=== PATIENT | female | born 1955 | race African-American/Black ===

== ENCOUNTER → 2019-12-01 | Outpatient (CLI) | payer OTHER | LOC: HYPER 08:36 | DX: E11.622 Type 2 diabetes mellitus with other skin ulcer (principal); L97.822 Non-pressure chronic ulcer of other part of left lower leg with fat layer exposed; I87.2 Venous insufficiency (chronic) (peripheral); I89.0 Lymphedema, not elsewhere classified; E11.51 Type 2 diabetes mellitus with diabetic peripheral angiopathy without gangrene; R26.2 Difficulty in walking, not elsewhere classified; G89.29 Other chronic pain; D86.9 Sarcoidosis, unspecified; J45.909 Unspecified asthma, uncomplicated; I11.0 Hypertensive heart disease with heart failure; I50.20 Unspecified systolic (congestive) heart failure; E78.5 Hyperlipidemia, unspecified; G47.33 Obstructive sleep apnea (adult) (pediatric); E11.36 Type 2 diabetes mellitus with diabetic cataract; M19.90 Unspecified osteoarthritis, unspecified site; E66.01 Morbid (severe) obesity due to excess calories; F33.8 Other recurrent depressive disorders; Z68.44 Body mass index [BMI] 60.0-69.9, adult; Z79.4 Long term (current) use of insulin ==

== ENCOUNTER → 2019-12-29 | Outpatient (CLI) | payer OTHER | LOC: HYPER 13:19 | DX: E11.622 Type 2 diabetes mellitus with other skin ulcer (principal); L97.811 Non-pressure chronic ulcer of other part of right lower leg limited to breakdown of skin; L97.822 Non-pressure chronic ulcer of other part of left lower leg with fat layer exposed; I87.2 Venous insufficiency (chronic) (peripheral); I89.0 Lymphedema, not elsewhere classified; E11.51 Type 2 diabetes mellitus with diabetic peripheral angiopathy without gangrene; M62.81 Muscle weakness (generalized); R26.2 Difficulty in walking, not elsewhere classified; D86.9 Sarcoidosis, unspecified; I11.0 Hypertensive heart disease with heart failure; I50.20 Unspecified systolic (congestive) heart failure; G89.29 Other chronic pain; E78.5 Hyperlipidemia, unspecified; G47.33 Obstructive sleep apnea (adult) (pediatric); J45.909 Unspecified asthma, uncomplicated; E11.36 Type 2 diabetes mellitus with diabetic cataract; M19.90 Unspecified osteoarthritis, unspecified site; E66.01 Morbid (severe) obesity due to excess calories; F33.8 Other recurrent depressive disorders; Z68.44 Body mass index [BMI] 60.0-69.9, adult; Z79.4 Long term (current) use of insulin ==

== ENCOUNTER → 2020-01-11 | Outpatient (CLI) | payer OTHER | LOC: HYPER 12:44 | DX: E11.622 Type 2 diabetes mellitus with other skin ulcer (principal); L97.822 Non-pressure chronic ulcer of other part of left lower leg with fat layer exposed; I87.2 Venous insufficiency (chronic) (peripheral); I89.0 Lymphedema, not elsewhere classified; E11.51 Type 2 diabetes mellitus with diabetic peripheral angiopathy without gangrene; M62.81 Muscle weakness (generalized); R26.2 Difficulty in walking, not elsewhere classified; G89.29 Other chronic pain; D86.9 Sarcoidosis, unspecified; I11.0 Hypertensive heart disease with heart failure; I50.20 Unspecified systolic (congestive) heart failure; E78.5 Hyperlipidemia, unspecified; J45.909 Unspecified asthma, uncomplicated; E11.36 Type 2 diabetes mellitus with diabetic cataract; M19.90 Unspecified osteoarthritis, unspecified site; E66.01 Morbid (severe) obesity due to excess calories; G47.33 Obstructive sleep apnea (adult) (pediatric); F33.8 Other recurrent depressive disorders; Z68.44 Body mass index [BMI] 60.0-69.9, adult; Z79.4 Long term (current) use of insulin ==

== ENCOUNTER 2021-03-26 16:04 | Inpatient (IN) | payer OTHER ==
[~2021-03-26] VITALS: Ht 157.5 cm; Wt 161.1 kg
--- NOTE | ~2021-03-26 | HC ---
[facility] [place] [address] CONSULTATION Name: AARON JAVIER Room #: 459-P ADM IN M.R.#: [id number] Admission: 03/26/21 Attend Phys: James Gusman MD Discharge: Date of : 53 Report #: [id number] THIS REPORT FOR: cc: Pepito Collins MD, Srinath MD Althoff,Dionicio Rojas MD ~ DOC #: [id number] Dionicio Rainey MD DATE OF SERVICE: 03/27/2021 CHIEF COMPLAINT: Cellulitis to the right lower extremity. HISTORY OF PRESENT ILLNESS: This is a 65-year-old female patient who was admitted to the emergency room with increasing pain, swelling, redness and drainage from her right lower extremity. She lives in a shelter care facility. She has had increasing drainage from the posterior calf area and has been admitted for IV antibiotics. I have been asked to see her with regard to wound care. PAST MEDICAL HISTORY: Significant for history of type 2 diabetes mellitus, hypertension, hyperlipidemia and prior history of cellulitis. ALLERGIES: CONTRAST DYE AND ATORVASTATIN. MEDICATIONS: Include aspirin, baclofen, Lotensin, Coreg, vitamin D3, famotidine, Flonase, furosemide, glucagon, guaifenesin, hydrocodone, ibuprofen, insulin. SOCIAL HISTORY: Negative for alcohol or tobacco use. The patient lives in a shelter facility. FAMILY HISTORY: Noncontributory. REVIEW OF SYSTEMS: CONSTITUTIONAL: The patient denies fever, chills or weight loss. NEUROLOGICAL: The patient denies focal weakness, numbness, tingling. EYES: The patient denies visual changes, but has drainage. ENT: The patient denies earache, nasal drainage, sore throat. CARDIOVASCULAR: The patient denies chest pain, palpitation, diaphoresis. PULMONARY: The patient denies cough, shortness of breath. GASTROINTESTINAL: Denies nausea, vomiting, diarrhea, abdominal pain. MUSCULOSKELETAL: The patient complains of pain, swelling, redness to the right lower extremity. Others systems on a 14-point review of systems are negative. PHYSICAL EXAMINATION: [address] [address] CONSULTATION Name: ANGEL GILAARON Room #: 459-P [facility]#: [id number] Admission: 03/26/21 Attend Phys: James Gusman MD Discharge: Date of : 53 Report #: [id number] VITAL SIGNS: Include temperature 36.8, pulse 90, respiratory rate 18, blood pressure 134/67. GENERAL: This is a chronically ill-appearing female. The patient appears to be in no acute distress. HEENT: Head normocephalic. Nose and throat are clear. NECK: Supple. LUNGS: Clear. HEART: Regular. ABDOMEN: Soft. Bowel sounds present. EXTREMITIES: Lower extremities demonstrate significant erythema, tenderness and warmth to the right lower extremity consistent with cellulitis. She has venous type ulceration to the posterior calf on that side which is also tender to palpation. NEUROLOGIC: Alert, oriented, and appropriate. LABORATORY DATA: Include white blood cell count 7.5 with a hemoglobin of 12.0. Sodium 149, potassium 4.5, chloride 111, CO2 of 33, BUN 19, creatinine 0.9, glucose 92, alkaline phosphatase is 38. Albumin is 3.2. CLINICAL IMPRESSION: 1. Venous ulceration to the right lower extremity. 2. Cellulitis and wound infection, right lower extremity. 3. Bilateral lower extremity lymphedema. 4. Type 2 diabetes mellitus. 5. Morbid obesity. 6. Mild protein calorie malnutrition. RECOMMENDATIONS: At this point in time, we will recommend Silvadene, morphine cream, Xeroform, Kerlix, tape, gentle compression and elevation to the right lower extremity. Lymphedema compression would be beneficial on the left lower extremity. She will need intravenous antibiotic therapy, which has been started. Infectious disease has been consulted. Continue current medications. I appreciate being asked to see her in consultation. Dionicio Rainey MD JRA/JOCY By: 0 49 Dionicio Rainey MD /carolann
[2021-03-26 16:06] VITALS: BP 189/81
[2021-03-26 17:27] LABS: ABSOLUTE NEUTROPHILS 4.3 thou/uL (1.4-8.2); BASOPHILS 1.1 % (0.0-2.0); EOSINOPHILS 4.1 % (0.0-3.0); HEMATOCRIT 37.5 % (37.0-47.0); LYMPHOCYTES 22.7 % (24.0-44.0); MCH 28.4 pg (26.0-34.0); MCHC 31.9 g/dL (28.0-37.0); MCV 89.1 fL (80.0-100.0); MONOCYTES 13.9 % (1.0-8.0); PLATELET COUNT 179 thou/uL (150-400); POLYS 58.2 % (36.0-66.0); RBC 4.21 mil/uL (4.20-5.00); RDW 14.8 % (10.5-14.5); WBC 7.5 thou/uL (4.0-11.0)
[2021-03-26 17:44] LABS: CALCIUM 8.9 mg/dL (8.5-10.1); CREATININE 0.9 mg/dL (0.6-1.0); POTASSIUM 4.5 mmol/L (3.5-5.1)
[2021-03-26 17:52] LABS: ALBUMIN 3.2 g/dL (3.4-5.0); TOTAL BILIRUBIN 0.3 mg/dL (0.2-1.0); TOTAL PROTEIN 7.4 g/dL (6.4-8.2)
[2021-03-26 20:04] VITALS: BP 146/69
[2021-03-26 20:49] VITALS: BP 125/80
[2021-03-27] MEDS ORDERED: CHILDREN'S ASPI81 M1 PO (02:01)
[2021-03-27] MEDS ORDERED: BACLOFEN 10MG T10 MG PO (02:04)
[2021-03-27] MEDS ORDERED: LOTENSIN20 MG PO (02:05)
[2021-03-27] MEDS ORDERED: GUAIFENESIN400 MG PO (02:10)
[2021-03-27] MEDS ORDERED: CARVEDILOL12.5 MG PO (02:19)
[2021-03-27] MEDS ORDERED: VITAMIN D3250 MC1 PO (02:26)
[2021-03-27] MEDS ORDERED: FAMOTIDINE20 MG PO (02:27)
[2021-03-27] MEDS ORDERED: FLONASE 0.05%50 MCG NASAL (02:28)
[2021-03-27] MEDS ORDERED: GLUCAGON EMERGEN1 M1 IM (02:32)
[2021-03-27] MEDS ORDERED: HUMULIN R100 UNIT/1 SUBQ (02:34)
[2021-03-27] MEDS ORDERED: HYDROCODON-ACE1 EAC7 PO (02:39)
[2021-03-27] MEDS ORDERED: IBU600 MG PO (02:42)
[2021-03-27] MEDS ORDERED: LEVEMIR100 UNIT/1 SUBQ (02:45)
[2021-03-27] MEDS ORDERED: MAGNESIUM400 M1 PO (02:47)
[2021-03-27] MEDS ORDERED: KLOR-CON M2020 MEQ PO (02:48)
[2021-03-27] MEDS ORDERED: CRESTOR20 MG PO (02:49)
[2021-03-27] MEDS ORDERED: SENOKOT8.6 MG PO (02:50)
[2021-03-27] MEDS ORDERED: FUROSEMIDE 20 M20 MG PO (02:51)
[2021-03-27] MEDS ORDERED: ANORO ELLIPTA1 EACH INH (02:53)
--- NOTE | 2021-03-27 08:05 | NUR ---
Pt admitted from ED appropx 2100 with RLE cellulitis,A/OX4. C/o severe pain to BLE, order for Fentanyl obtained and effective. Pt reports she can ambulate using a walker on assessment;asking for a jeffery catheter because she's big informed that's not a medical necessity for it' Purewick replaced twice at [facility], patent with yellow urine noted. Wound care/pictures taken. Fall precauitons in place.
[2021-03-27 08:11] VITALS: BP 134/67
--- NOTE | 2021-03-27 09:29 | NUR ---
Nutrition: pt admitted with RLE cellulitis with increased weeping. Wound consult received. BMI 65, extreme class 3 obesity with 15# recent gain d/t fluid. PMH: chronic lymphedema, CHF, morbid obesity. Pt reports "so so" appetite but noted she had consumed nearly 100% of breakfast at time of visit. Reviewed importance of low Na+ diet. Pt from SNF and does not report following it there. Also reviewed importance of high protein choices. Takes Prostat BID at facility. Will offer ensure max (30 gm protein, low kcal) daily here. Pt agrees. Low nutrition risk at this time.
--- NOTE | 2021-03-27 13:56 | NUR ---
PT ADMITTED RELATED TO CELLULITIS RLE AND INCREASED WEEPING. CM REVIEWED CHART AND SPOKE WITH CARE TEAM. CM MET WITH PT AT BEDSIDE THIS DAY. PT APPEARED TO BE A&O X4. CM ROLE INTRODUCED PT INDICATED SHE HAD BEEN AT [facility]. PT INDICATED SHE HAS BEEN THERE FOR ABOUT A YEAR. PT INDICATED SHE USES A FWW AND A WC TO ASSIST WITH MOBILITY. PT INDICATED SHE HAD BEEN ABLE TO TRANSFER INDEPENDENTLY. PT INDICATED SHE PLANS TO RETURN TO [facility] ONCE MEDICALLY STABLE. PT IS ON IV VANC AND ZOSYN AND WC IS CONSULTED. CM FAXED CLINICAL INFO TO [facility]. CM FOLLOWING REGARDING DC PLANNING.
--- NOTE | 2021-03-27 15:40 | NUR ---
Assumed pt care at 7am.Pt in bed most of the time today but able to repositioned self as needed.Assessment completed.vss.Meds given as ordered and well tolerated.Dr Devries here,order noted.Dry dressing applied to rt lower leg.Pt c/o lower extremity pain rated 7/10.[place] given with relief.Waiting for silverdene cream from pharmacy before starting new drsg change. Will continue to monitor.
[2021-03-27 17:19] VITALS: BP 117/93
[2021-03-28 02:01] LABS: HEMATOCRIT 34.9 % (37.0-47.0); HEMOGLOBIN 10.9 gm/dL (12.0-15.0); MCH 27.9 pg (26.0-34.0); MCHC 31.2 g/dL (28.0-37.0); MCV 89.4 fL (80.0-100.0); RBC 3.91 mil/uL (4.20-5.00); RDW 14.7 % (10.5-14.5); WBC 7.6 thou/uL (4.0-11.0)
[2021-03-28 02:04] LABS: CALCIUM 8.5 mg/dL (8.5-10.1); CREATININE 0.9 mg/dL (0.6-1.0)
--- NOTE | 2021-03-28 04:45 | NUR ---
Pt. rested quiety at intervals during the night when checked on during frequent rounds. She can get fussy during cares and be demanding at times. Po meds given for c/o lower leg pain (see emar) with some relief. Bed alarm is on.
[2021-03-28 08:00] VITALS: BP 145/74
--- NOTE | 2021-03-28 12:30 | HC ---
[facility] [place] [address] CONSULTATION Name: AARON JAVIER Room #: 459-P ADM IN M.R.#: [id number] Admission: 03/26/21 Attend Phys: James Gusman MD Discharge: Date of : 53 Report #: [id number] THIS REPORT FOR: cc: Pepito Collins MD, Srinath MD Barry,Maurilio Vargas MD ~ DOC #: [id number] Maurilio Devries MD DATE OF SERVICE: 03/27/2021 INFECTIOUS DISEASE CONSULTATION DATE OF CONSULTATION: 03/27/2021 ATTENDING PHYSICIAN: Dr. Gusman. REASON FOR EVALUATION: Right lower extremity inflammatory eruption, likely multifactorial including skin and soft tissue infection with cellulitis associated wound. HISTORY OF PRESENT ILLNESS: Chart reviewed, patient examined. This is a 65-year-old woman with diabetes mellitus, has morbid obesity, bilateral lower extremity venous stasis insufficiency, component of lymphedema as well. She has had previous history of lower extremity wound. She noted increasing pain over the last 4-5 days in particular associated with the right lower extremity, it is difficult to ascertain from her standpoint whether there is increased swelling. There has been some ongoing primarily serous drainage, did admit to chills, although was not aware of any fevers. She notes she has had diminished appetite. Does have ongoing issues with dyspnea, which she attributes to scarring related to sarcoidosis and asthma, evaluated in the emergency room, was found to have unremarkable venous Doppler right lower extremity, was placed empirically on combination therapy with vancomycin, piperacillin/tazobactam. She notes she feels overall about the same since admission. She is generally lucid. ALLERGIES: LISTED TO CONTRAST DYE, ATORVASTATIN. CURRENT MEDICATIONS: Include insulin, hydrocodone, ipratropium, albuterol inhaler, Zosyn, ondansetron, acetaminophen, vancomycin. PAST MEDICAL HISTORY: As described above, diabetes mellitus, history of sarcoidosis, she states is in remission, asthma, essential hypertension, morbid obesity, chronic venous stasis insufficiency, lower extremity lymphedema, depression, has a cardiomyopathy with history of congestive heart failure. SOCIAL HISTORY: Former smoker, past ethanol, no illicit drug use. [address] [address] CONSULTATION Name: ANGEL GILAARON Room #: 459-P [facility] IN [facility].#: [id number] Admission: 03/26/21 Attend Phys: James Gusman MD Discharge: Date of : 53 Report #: [id number] FAMILY HISTORY: Noncontributory. REVIEW OF SYSTEMS: Otherwise, unremarkable. A 10-point review of systems exception of the above. PHYSICAL EXAMINATION: GENERAL: She is alert, cooperative, in moderate distress, morbidly obese. VITAL SIGNS: Temperature 98.2, pulse 90, respirations 18, blood pressure 134/67. SKIN: Warm, dry, no rashes. HEENT: Normocephalic. Extraocular muscles intact. NECK: Supple. LUNGS: Diminished breath sounds. There are no wheezes. Few crackles at the bases. HEART: Distant, regular with some ectopy, I do not appreciate a murmur. ABDOMEN: Large pannus, nontender, somewhat firm. EXTREMITIES: Bilateral lower extremities have significant edema, evaluate the right lower extremity has chronic dermopathy consistent with the lymphedema is exquisite tenderness specifically posteriorly, some superficial ulceration. GENITOURINARY AND RECTAL: Deferred. LABORATORY DATA: Electrolytes: Sodium 149, potassium 4.5, chloride 111, bicarbonate is 33, anion gap of 5, BUN and creatinine 19 and 0.9. LFTs unremarkable. Albumin of 3.2, total protein 7.4. Estimated GFR of 67. CBC: White count of 7.5, H and H 12.0 and 37.5, platelets of 179. ASSESSMENT AND PLAN: Bilateral lower extremity, chronic venous stasis insufficiency with dermatitis, lymphedema, right lower extremity with painful inflammatory eruption, likely a manifestation of the skin and soft tissue infection with wound infection, cellulitis. We will continue empiric antimicrobial therapy at this point. A drainage culture has been collected. We will await those results. Continue wound care. Initiate more compression as tolerated and elevation. She remains quite tenuous. Certainly at risk for additional complications. We will add incentive spirometry. Wound care as prescribed. MD ROSALIE Donald/[place] [address] CONSULTATION Name: AARON JAVIER Room #: 459-P [facility] IN M.R.#: [id number] Admission: 03/26/21 Attend Phys: James Gusman MD Discharge: Date of : 53 Report #: [id number] <ELECTRONICALLY SIGNED> By: Maurilio Devries MD 03/28/21 1230 [id number] Maurilio Devries MD /nt
--- NOTE | 2021-03-28 15:17 | NUR ---
PT CONTINUES ON IV VANC AND ZOSYN. WC FOLLOWING. CM FOLLOWING REGARDING DC PLANNING.
--- NOTE | 2021-03-28 15:22 | NUR ---
Assumed pt care at 7am.Pt in bed sound asleep at the beginning of shift. Assessment completed.vss. Meds given as ordered with breakfast.Pt has good appetite.C/o bilateral lower extremity pain rated 7/10.[place] given as ordered with relief.New drsg applied to rt calf wound.Pt requested for lymphedema nurse, Dr Gusman notified. No further c/o at present.Will continue to monitor.
[2021-03-28 16:00] VITALS: BP 145/63
[2021-03-28 19:58] VITALS: BP 157/68
[2021-03-29 05:17] LABS: HEMATOCRIT 36.4 % (37.0-47.0); HEMOGLOBIN 11.4 gm/dL (12.0-15.0); MCH 28.2 pg (26.0-34.0); MCHC 31.4 g/dL (28.0-37.0); MCV 89.8 fL (80.0-100.0); RBC 4.06 mil/uL (4.20-5.00); RDW 14.6 % (10.5-14.5); WBC 7.6 thou/uL (4.0-11.0)
[2021-03-29 05:23] LABS: CALCIUM 8.6 mg/dL (8.5-10.1); CREATININE 0.7 mg/dL (0.6-1.0)
--- NOTE | 2021-03-29 06:06 | NUR ---
Pt. rested quietly at intervals during the night when checked on during frequent rounds. She has been given po pain meds for c/o lower leg pain (see emar) with some relief noted. She has been using the bedpan. Pt. can get irritable at times. Bed alarm is on.
[2021-03-29 07:50] VITALS: BP 167/60
[2021-03-29 15:00] VITALS: BP 166/70
--- NOTE | 2021-03-29 15:53 | NUR ---
BPCI letter and preferred provider network provided to patient, lives at [facility] as long-term care resident.
[2021-03-29 20:17] VITALS: BP 191/80
--- NOTE | 2021-03-29 20:53 | NUR ---
Assumed pt care this am, diet and medicatiosn are tolerated well. able to use the commode and stayed on the recliner for most of the day. Lymphedema nurse and wound care nurse came to change the dressing, do wound care and wrap the legs as ordered by MD. Pain is managed with medication, partial relief is noted. Pt has a bm and used the bedside commode, ext fc being used when on the bed. Endorsed to the night nurse.
--- NOTE | 2021-03-30 05:44 | NUR ---
Pt. rested quietly at intervals during the night when checked on during frequent rounds. She has been given po pain meds for c/o pain to bilateral lower legs with some relief noted (see emar). Bed alarm is on.
[2021-03-30 09:09] VITALS: BP 161/76
--- NOTE | 2021-03-30 15:03 | NUR ---
CARE TEAM INDICATED THAT PT MAY BE MEDICALLY STABLE TO DISHCARGE BACK TO [facility] TOMORROW. CM CALLED AND SPOKE WITH ADMISSIONS AT [facility] AND NOTIFIED THEM. THEY INDICATED BEST WEEKEND CONTACT TO FAILITATE DISCHARGE IS [facility]. HE CAN BE REACHED BY CALLING MAIN FACILITY LINE AT . FAX ORDERS TO . CHART COPY ORDERED. PT IS AWARE.
--- NOTE | 2021-03-30 16:42 | NUR ---
ASSUMED CARE OF PATIENT AT SHIFT CHANGE. ASSESSMENT CHARTED. MEDS ADMINISTERED PER EMAR. VSS. PATIENT IS A&OX4 AND CALLS NEEDED. PATIENT TRANSFERRED TO BS AND CHAIR X1 WITH WALKER AND GB. NO ISSUES EXCEPT SOA RELIEVED AFTER A FEW MOMENTS OF REST. ABX INFUSING ON L FA; REINFORCED W PROTECTIVE WRAP. VOICES PAIN; PRN NORCO ADMINISTERED AND PROVIDED SOME RELIEF. WOUND CARE COMPLETE THIS AFTERNOON WITH LYMPHAEDEMA TREATMENT. FSBS STABLE THIS SHIFT; PATIENT VOICED ANXIETY OVER GETTING LG AMOUNT OF INSULIN AND REQUESTED SMALLER AMOUNTS THIS SHIFT. PROVIDER AWARE. PATIENT MEDICALLY STABLE FOR DISCHARGE TOMORROW AND WILL BE GOING BACK TO [facility]. PATIENT DENIED FURTHER NEEDS. FALL PRECAUTIONS IN PLACE. WILL CONTINUE TO MONITOR AND FOLLOW PLAN OF CARE
[2021-03-30 20:09] VITALS: BP 163/71
--- NOTE | 2021-03-31 04:23 | NUR ---
PAIENT TESTED COVID POSITIVE, PATIENT WAS VACCINED X2 IN OCTOBER AND NOVEMBER.PATIENT HAD NO S/S OF COVID THIS SHIFT. PATIENT HAD 36.1 THRESHHOLD. PATIENT AMBULATES WITH STEADY GAIT TO THE BEDSIDE COMMODE. BLE WRAPS ARE C/D/I. PAIN CONTROLLED THIS SHIFT.PATIENT IN RECLINER ASLEEP BREATHING REGULAR AND UNLABOURED.
[2021-03-31 05:35] LABS: HEMATOCRIT 35.4 % (37.0-47.0); HEMOGLOBIN 11.2 gm/dL (12.0-15.0); MCH 28.4 pg (26.0-34.0); MCHC 31.7 g/dL (28.0-37.0); MCV 89.8 fL (80.0-100.0); RBC 3.95 mil/uL (4.20-5.00); RDW 14.5 % (10.5-14.5); WBC 7.1 thou/uL (4.0-11.0)
[2021-03-31 05:49] LABS: CALCIUM 8.8 mg/dL (8.5-10.1); CREATININE 0.7 mg/dL (0.6-1.0)
[2021-03-31 07:42] VITALS: BP 153/69
[2021-03-31] MEDS ORDERED: AMOX TR-K CLV1 EAC4 PO (10:40)
[2021-03-31] MEDS ORDERED: CIPROFLOXACIN250 M2 PO (10:40)
[2021-03-31] MEDS ORDERED: ENOXAPARIN40 MG/0.1 SUBQ (10:41)
--- NOTE | 2021-03-31 14:56 | NUR ---
Assumed pt care this am, vs stable. Prefers to be on the recliner. Diet and medications are tolerated well. Able to ambulate to the commode, SOA noted with minimal exertion. Blood sugars monitores and medications given as per emar. Wound care MD came in the to see wound, noted both legs are in lymphedema wraps and to be changed on the 04/02 - 04/03, refused for wound dressing to be done and changed by this nurse. Pt was reported to be covid positive by the night nurse, ID informed, no isolation needed. Pt has a hx of covid in October and vaccinations were completed early this year as mentioned by the pt and facility nurse where pt had come from. Was advised by the facility that they were informed by the night nurse of the covid + results and they would get back to us regarding the DON decision for taking the pt back to the facility. Medications have been changed from IV to PO and is tolerated well.
[2021-03-31 16:00] VITALS: BP 182/75
[2021-03-31 19:45] VITALS: BP 180/65
--- NOTE | 2021-04-01 05:49 | NUR ---
Assumed pt care at 1900. A/OX4,VSS. C/o pain to BLE/Knees medicated per EMAR with relief reported. Up with AX1 RW/GB to BSC. Dsgs to BLE C/D/I,pt indicated she was told by the dsgs will be done 3/wk and doesn't want them touched. Resting on the recliner feet elevated. C/o indigestion, order for Mylanta obtained. Fall precauitons in place,will continue to monitor pt.
[2021-04-01 08:06] VITALS: BP 153/59
[2021-04-01 09:32] VITALS: BP 153/59
[2021-04-01] MEDS ORDERED: LEVOFLOXACIN750 MG PO (10:52)
--- NOTE | 2021-04-01 16:28 | NUR ---
Assumed pt care this am, VS stable. Stayed on the recliner for most of the day. Is able to ambulate with a walker to the commode. Lympedema wraps on BLE c/d/i, dressing not done since pt refused and wraps are to be changed on 04/02, only wants the wound casre team or the lympedema ot nurse to do the dressing. Refused both insulin scheduled and as per sliding scale for lunch stating she bottoms out in the pm. Was able to have a bm in the commode. Pt is morbidly obese and soa is noted upon exertion. Pain is managed with medications, partial relief is noted since as per pt pain is chronic. POC followed with no signs or verbalizations of distress noted. Was able to speak to Sabiha from [facility], they are able to take the pt at 4 to 5 pm when the bed will be available. Transport set up with [facility] spoke to Anabelle [phone], transport set up for 6 - 7 pm. Chart copy made, report offered to Sabiha from [facility] and stated this is not needed and they will call if there are any questions. IV removed, awaiting moss picker.
== END 2021-04-01 17:00 | DRG 602 ==
LOC: ER 16:04 → EROBS 19:50 → 4W 19:50
PROVIDERS: Emergency Medicine; Internal Medicine; ADMIT Hospitalist; ATTEND Hospitalist
DX: L03.115 Cellulitis of right lower limb (principal); U07.1 COVID-19; Z68.44 Body mass index [BMI] 60.0-69.9, adult; I42.9 Cardiomyopathy, unspecified; E44.1 Mild protein-calorie malnutrition; L97.218 Non-pressure chronic ulcer of right calf with other specified severity; I87.2 Venous insufficiency (chronic) (peripheral); E66.01 Morbid (severe) obesity due to excess calories; E11.622 Type 2 diabetes mellitus with other skin ulcer; F32.9 Major depressive disorder, single episode, unspecified; I87.8 Other specified disorders of veins; L89.159 Pressure ulcer of sacral region, unspecified stage; I50.9 Heart failure, unspecified; I11.0 Hypertensive heart disease with heart failure; E78.5 Hyperlipidemia, unspecified; Z88.8 Allergy status to other drugs, medicaments and biological substances; Z79.4 Long term (current) use of insulin; Z79.899 Other long term (current) drug therapy; Z91.041 Radiographic dye allergy status; Z87.891 Personal history of nicotine dependence
CPT/HCPCS: 10045

== ENCOUNTER → 2021-08-01 | Outpatient (CLI) | payer OTHER ==
[~2021-08-01] MED LIST: AMOX TR-K CLV1 EAC4 PO; ANORO ELLIPTA1 EACH INH; BACLOFEN 10MG T10 MG PO; CARVEDILOL12.5 MG PO; CHILDREN'S ASPI81 M1 PO; CIPROFLOXACIN250 M2 PO; CRESTOR20 MG PO; ENOXAPARIN40 MG/0.1 SUBQ; FAMOTIDINE20 MG PO; FLONASE 0.05%50 MCG NASAL; FUROSEMIDE 20 M20 MG PO; GLUCAGON EMERGEN1 M1 IM; GUAIFENESIN400 MG PO; HUMULIN R100 UNIT/1 SUBQ; HYDROCODON-ACE1 EAC7 PO; IBU600 MG PO; KLOR-CON M2020 MEQ PO; LEVEMIR100 UNIT/1 SUBQ; LEVOFLOXACIN750 MG PO; LOTENSIN20 MG PO; MAGNESIUM400 M1 PO; SENOKOT8.6 MG PO; VITAMIN D3250 MC1 PO
== END ==
LOC: HYPER 08:02
PROVIDERS: ATTEND Emergency Medicine
DX: E11.622 Type 2 diabetes mellitus with other skin ulcer (principal); L97.812 Non-pressure chronic ulcer of other part of right lower leg with fat layer exposed; E11.621 Type 2 diabetes mellitus with foot ulcer; L97.522 Non-pressure chronic ulcer of other part of left foot with fat layer exposed; E11.51 Type 2 diabetes mellitus with diabetic peripheral angiopathy without gangrene; E11.40 Type 2 diabetes mellitus with diabetic neuropathy, unspecified; E66.01 Morbid (severe) obesity due to excess calories; E78.5 Hyperlipidemia, unspecified; I89.0 Lymphedema, not elsewhere classified; I11.0 Hypertensive heart disease with heart failure; I50.9 Heart failure, unspecified; I87.2 Venous insufficiency (chronic) (peripheral); G47.33 Obstructive sleep apnea (adult) (pediatric); J45.909 Unspecified asthma, uncomplicated; M19.90 Unspecified osteoarthritis, unspecified site; Z98.49 Cataract extraction status, unspecified eye; Z79.4 Long term (current) use of insulin; Z79.82 Long term (current) use of aspirin